=== PATIENT | male | born 1975 | race Hispanic/Latino ===

== ENCOUNTER 2018-11-08 11:35 | Emergency (ER) | payer BC, OTHER ==
--- OUTSIDE RECORDS SUMMARY | 2018-11-08 12:10 | XMS REPORT ---
:1975 [facility] Address [address] [place] [address] [address]. [address] [place] [address] Care Team Providers Name Role Phone Unavailable Unavailable Unavailable Problems This patient has no known problems. Allergies, Adverse Reactions, Alerts This patient has no known allergies or adverse reactions. Medications This patient has no known medications.
[2018-11-08 13:28] LABS: Urine Blood NEGATIVE (NEG); Urine Glucose NEGATIVE (NEG); Urine Protein 2+ (NEG); Urine Specific Gravity 1.025 (1.005-1.030); Urine pH 5.5 (5.0-7.0)
[2018-11-08 14:06] LABS: Absolute Lymphocytes (CBC) 1.8 K/uL (0.7-4.9); Absolute Monocytes 0.6 K/uL (0.1-1.3); Absolute Neutrophil 9.1 K/uL (1.8-8.0); Basophils % 0.6 % (0-1.3); Eosinophils % 1.9 % (0-4.4); Hematocrit 47.3 % (39.6-49.0); Lymphocytes % 15.3 % (15.3-44.8); MPV 9.5 fL (7.6-11.3); Monocytes % 5.1 % (3.3-12.3); RBC Red Blood Cell Count 6.09 M/uL (4.33-5.43)
[2018-11-08 14:25] LABS: Albumin 3.9 g/dL (3.4-5.0); Bilirubin Total 0.5 mg/dL (0.2-1.0); Potassium 4.1 mmol/L (3.5-5.1)
--- NOTE | 2018-11-08 14:28 | RAD REPORT ---
EXAM DESCRIPTION: CT - Stone Protocol - 11/08/2018 2:15 pm CLINICAL HISTORY: Abdominal pain. Right flank pain COMPARISON: None. TECHNIQUE: Computed axial tomography of the abdomen pelvis was obtained without oral or IV contrast. Lack of IV and oral contrast limits evaluation of solid organs, bowel, and vessels. Coronal reformat maryana images were obtained and reviewed. All CT scans are performed using dose optimization technique as appropriate and may include automated exposure control or mA/KV adjustment according to patient size. FINDINGS: A renal calculus is not seen. An ureteral calculus is not noted. A bladder calculus is not present. Fatty liver spleen, pancreas and adrenals appear grossly normal There is no evidence of diverticulitis. The appendix appears normal 12 millimeter area of sclerosis within the right femoral neck IMPRESSION: Negative for a genitourinary calculus 12 millimeter area of sclerosis within the right femoral neck. X-ray of the right hip recommended in 3 months to assess stability
--- NOTE | 2018-11-08 15:12 | EDPHYS ---
Physician Documentation [facility] Name: Chuy Combs Jr Age: 43 yrs Sex: Male : 1975 Arrival Date: 11/08/2018 Time: 11:38 Bed 27 Private MD: ED Physician Marcos Tao HPI: 11/08 15:11 This 43 yrs old Male presents to ER via Ambulatory with complaints of Back ps1 Pain. 15:11 patient states that he has atraumatic right back pain localized over the right hip. Pt ps1 states that it does not radiate but patient has a history of urinary complaints 2/2 diabetes. He does not attest to dysuria but has frequency. He describes the pain as dull. No hematuria. No history of urinary stones. No medications taken for pain. . Historical: - Allergies: 12:01 PENICILLINS; aj1 - Home Meds: 12:01 Metformin Oral [Active]; Glyburide Oral [Active]; levothyroxine oral [Active]; aj1 - PMHx: 12:01 Hypothyroidism; Diabetes - NIDDM; aj1 - Immunization history:: Flu vaccine is not up to date. - Social history:: Smoking status: Patient/guardian denies using tobacco. - Ebola Screening: : Patient denies travel to an Ebola-affected area in the 21 days before illness onset. ROS: 15:11 Constitutional: Negative for fever, chills, and weight loss, Eyes: Negative for injury, ps1 pain, redness, and discharge, ENT: Negative for injury, pain, and discharge, Cardiovascular: Negative for chest pain, palpitations, and edema, Respiratory: Negative for shortness of breath, cough, wheezing, and pleuritic chest pain, Abdomen/GI: Negative for abdominal pain, nausea, vomiting, diarrhea, and constipation, MS/Extremity: Negative for injury and deformity, Skin: Negative for injury, rash, and discoloration, Neuro: Negative for headache, weakness, numbness, tingling, and seizure. 15:11 Back: Positive for pain at rest, flank pain, on the right. Exam: 15:11 Constitutional: This is a well developed, well nourished patient who is awake, alert, ps1 and in no acute distress. Head/Face: Normocephalic, atraumatic. Eyes: Pupils equal round and reactive to light, extra-ocular motions intact. Lids and lashes normal. Conjunctiva and sclera are non-icteric and not injected. Chest/axilla: Normal chest wall appearance and motion. Nontender with no deformity. No lesions are appreciated. Cardiovascular: Regular rate and rhythm. No gallops, murmurs, or rubs. Normal PMI, no JVD. No pulse deficits. Respiratory: Lungs have equal breath sounds bilaterally, clear to auscultation and percussion. No rales, rhonchi or wheezes noted. No increased work of breathing, no retractions or nasal flaring. Abdomen/GI: Soft, non-tender, with normal bowel sounds. No distension or tympany. No guarding or rebound. No evidence of tenderness throughout. Skin: Warm, dry with normal turgor. Normal color with no rashes, no lesions, and no evidence of cellulitis. MS/ Extremity: Pulses equal, no cyanosis. Neurovascular intact. Full, normal range of motion. Neuro: Awake and alert, GCS 15, oriented to person, place, time, and situation. Cranial nerves II-XII grossly intact. Sensory grossly intact. Psych: Awake, alert, with orientation to person, place and time. Behavior, mood, and affect are within normal limits. Vital Signs: 12:01 BP 166 / 100; Pulse 86; Resp 18; Temp 97.0; Pulse Ox 100% on R/A; Weight 117.93 kg (R); aj1 Height 5 ft. 11 in. (180.34 cm) (R); Pain 8/10; 13:00 BP 143 / 94; Pulse 86; Resp 17 S; Temp 97.4(O); Pulse Ox 100% on R/A; ca1 13:56 BP 140 / 101; Pulse 87; Resp 17 S; Pulse Ox 100% on R/A; ca1 14:00 BP 143 / 97; Pulse 86; Resp 16; Temp 98.5(O); Pulse Ox 100% ; lt1 14:39 BP 159 / 103; Pulse 81; Resp 18 S; Temp 98.4(O); Pulse Ox 100% on R/A; ca1 15:02 BP 160 / 102; Pulse 83; Resp 17 S; Temp 98.5; Pulse Ox 100% on R/A; ca1 12:01 Body Mass Index 36.26 (117.93 kg, 180.34 cm) aj1 MDM: 13:53 Patient medically screened. ps1 15:11 Data reviewed: vital signs, nurses notes. Counseling: I had a detailed discussion with ps1 the patient and/or guardian regarding: the historical points, exam findings, and any diagnostic results supporting the discharge/admit diagnosis, lab results, radiology results, the need for outpatient follow up, for imaging of right hip for progression. . 11/08 13:17 Order name: Urine Dipstick--Ancillary (enter results); Complete Time: 13:37 bd 11/08 13:38 Order name: CBC with Diff; Complete Time: 14:12 ps1 11/08 13:38 Order name: CMP; Complete Time: 14:40 ps1 11/08 13:38 Order name: CT Stone Protocol; Complete Time: 14:40 ps1 11/08 13:55 Order name: Saline Lock; Complete Time: 13:55 ca1 Administered Medications: No medications were administered Disposition: 11/08/18 15:11 Discharged to Home. Impression: Sclerosis of right femoral neck, right hip pain. - Condition is Stable. - Discharge Instructions: Hip Pain. - Prescriptions for Anaprox DS 550 mg Oral Tablet - take 1 tablet by ORAL route every 12 hours As needed; 20 tablet. Robaxin 500 mg Oral Tablet - take 2 tablet by ORAL route every 6 hours As needed; 40 tablet. - Medication Reconciliation Form, Thank You Letter, Antibiotic Education, Prescription Opioid Use form. - Follow up: Private Physician; When: As needed; Reason: Further diagnostic work-up, Recheck today's complaints, Continuance of care, Re-evaluation by your physician. Follow up: Emergency Department; When: As needed; Reason: Fever > 102 F, Trouble breathing, Worsening of condition. - Problem is new. - Symptoms are unchanged. Signatures: [facility] Gosia Dominguez RN RN aj1 Iraida Gonzalez RN RN aj Marcos Tao MD MD ps1 Melida Agudelo RN RN ca1 Corrections: (The following items were deleted from the chart) 13:40 13:39 HEMOGLOBIN A1C+CHEM A1C.LAB.BRZ ordered. [facility] 15:29 15:11 11/08/2018 15:11 Discharged to Home. Impression: Sclerosis of right femoral neck; aj right hip pain. Condition is Stable. Forms are Medication Reconciliation Form, Thank You Letter, Antibiotic Education, Prescription Opioid Use. Follow up: Private Physician; When: As needed; Reason: Further diagnostic work-up, Recheck today's complaints, Continuance of care, Re-evaluation by your physician. Follow up: Emergency Department; When: As needed; Reason: Fever > 102 F, Trouble breathing, Worsening of condition. Problem is new. Symptoms are unchanged. ps1
--- NOTE | 2018-11-08 15:12 | ER ---
Nurse's Notes [facility] Name: Chuy Combs Jr Age: 43 yrs Sex: Male : 1975 Arrival Date: 11/08/2018 Time: 11:38 Bed 27 Private MD: Diagnosis: Sclerosis of right femoral neck;right hip pain Presentation: 11/08 11:58 Presenting complaint: Patient states: "Wednesday night my back started hurting like aj1 someone is punching me, its not like a sharp pain, its like a soreness" Reports pain to right mid back. Denies injury to back. Reports urinary frequency. Transition of care: patient was not received from another setting of care. Onset of symptoms was November 06, 2018. Risk Assessment: Do you want to hurt yourself or someone else? Patient reports no desire to harm self or others. Initial Sepsis Screen: Does the patient meet any 2 criteria? HR > 90 bpm. No. Patient's initial sepsis screen is negative. Does the patient have a suspected source of infection? Yes: Dysuria/Frequency/Urgency/UTI. Care prior to arrival: None. 11:58 Method Of Arrival: Ambulatory [facility] 11:58 Acuity: USMAN 3 aj1 Triage Assessment: 12:01 General: Appears in no apparent distress. comfortable, Behavior is calm, cooperative, aj1 appropriate for age. Pain: Complains of pain in right mid back. Neuro: Level of Consciousness is awake, alert, obeys commands. Cardiovascular: Patient's skin is warm and dry. Respiratory: Airway is patent Respiratory effort is even, unlabored, Respiratory pattern is regular, agonal. : Reports urinary frequency. Musculoskeletal: Range of motion: intact in all extremities. Historical: - Allergies: 12:01 PENICILLINS; aj1 - Home Meds: 12:01 Metformin Oral [Active]; Glyburide Oral [Active]; levothyroxine oral [Active]; aj1 - PMHx: 12:01 Hypothyroidism; Diabetes - NIDDM; aj1 - Immunization history:: Flu vaccine is not up to date. - Social history:: Smoking status: Patient/guardian denies using tobacco. - Ebola Screening: : Patient denies travel to an Ebola-affected area in the 21 days before illness onset. Screenin:00 Abuse screen: Denies threats or abuse. Denies injuries from another. Nutritional ca1 screening: No deficits noted. Tuberculosis screening: No symptoms or risk factors identified. Fall Risk None identified. Assessment: 13:00 General: Appears in no apparent distress. comfortable, Behavior is calm, cooperative, ca1 appropriate for age. Pain: Complains of pain in back and right mid back Pain radiates to right upper quadrant Pain currently is 7 out of 10 on a pain scale. Quality of pain is described as dull, Pain began 2-3 days ago. Aggravated by increased activity. Neuro: Level of Consciousness is awake, alert, obeys commands, Oriented to person, place, time, situation. Cardiovascular: Heart tones S1 S2 present Capillary refill < 3 seconds Patient's skin is warm and dry. Respiratory: Airway is patent Respiratory effort is even, unlabored, Respiratory pattern is regular, symmetrical, Breath sounds are clear bilaterally. GI: Abdomen is round non-distended, Bowel sounds present X 4 quads. Abd is soft and non tender X 4 quads. : No deficits noted. No signs and/or symptoms were reported regarding the genitourinary system. EENT: No deficits noted. No signs and/or symptoms were reported regarding the EENT system. Derm: Skin is intact, is healthy with good turgor, Skin is pink, warm \\T\\ dry. Musculoskeletal: Circulation, motion, and sensation intact. Capillary refill < 3 seconds, Range of motion: intact in all extremities. 13:55 Reassessment: Patient appears in no apparent distress at this time. No changes from ca1 previously documented assessment. Patient and/or family updated on plan of care and expected duration. Pain level reassessed. Patient is alert, oriented x 3, equal unlabored respirations, skin warm/dry/pink. 14:19 Reassessment: Pt from Ct scan. ca1 14:39 Reassessment: Patient appears in no apparent distress at this time. Patient is alert, ca1 oriented x 3, equal unlabored respirations, skin warm/dry/pink. 15:02 Reassessment: Patient appears in no apparent distress at this time. Patient is alert, ca1 oriented x 3, equal unlabored respirations, skin warm/dry/pink. Vital Signs: 12:01 BP 166 / 100; Pulse 86; Resp 18; Temp 97.0; Pulse Ox 100% on R/A; Weight 117.93 kg (R); aj1 Height 5 ft. 11 in. (180.34 cm) (R); Pain 8/10; 13:00 BP 143 / 94; Pulse 86; Resp 17 S; Temp 97.4(O); Pulse Ox 100% on R/A; ca1 13:56 BP 140 / 101; Pulse 87; Resp 17 S; Pulse Ox 100% on R/A; ca1 14:00 BP 143 / 97; Pulse 86; Resp 16; Temp 98.5(O); Pulse Ox 100% ; lt1 14:39 BP 159 / 103; Pulse 81; Resp 18 S; Temp 98.4(O); Pulse Ox 100% on R/A; ca1 15:02 BP 160 / 102; Pulse 83; Resp 17 S; Temp 98.5; Pulse Ox 100% on R/A; ca1 12:01 Body Mass Index 36.26 (117.93 kg, 180.34 cm) aj1 ED Course: 11:38 Patient arrived in ED. mr 12:00 Triage completed. aj1 12:01 Arm band placed on. aj1 12:53 Melida Agudelo, ZEV is Primary Nurse. ca1 12:53 Marcos Tao MD is Attending Physician. ps1 13:00 Patient has correct armband on for positive identification. Placed in gown. Bed in low ca1 position. Call light in reach. Side rails up X 1. Pulse ox on. NIBP on. Warm blanket given. 13:50 Inserted saline lock: 20 gauge in left antecubital area, using aseptic technique. Blood ca1 collected. 14:15 CT completed. Patient tolerated procedure well. ls3 14:16 CT Stone Protocol In Process Unspecified. EDMS 15:29 No provider procedures requiring assistance completed. IV discontinued, intact, aj bleeding controlled, No redness/swelling at site. Pressure dressing applied. Administered Medications: No medications were administered Outcome: 15:11 Discharge ordered by . ps1 15:29 Discharged to home ambulatory. aj 15:29 Condition: good 15:29 Discharge instructions given to patient, Instructed on discharge instructions, follow up and referral plans. medication usage, Demonstrated understanding of instructions, follow-up care, medications, Prescriptions given X 2. 15:29 Patient left the ED. aj Signatures: Dispatcher [employer] EDMS Gosia Dominguez RN RN ajIraida Garcia RN RN aj Rivera, Mary mr Marcos Tao MD MD ps1 Ric Perales ls3 Melida Agudelo RN RN ca1 Mary Kay Bustamante lt1 Corrections: (The following items were deleted from the chart) 11:58 Acuity: USMAN 4 aj1 aj1
[2018-11-08 21:56] VITALS: O2SAT 100
[2018-11-08 22:03] VITALS: BP 160/102; TEMP 98.5
== END 2018-11-08 15:29 | disposition home or self-care (01) ==
LOC: ER 11:35
DX: M25.551 Pain in right hip (principal); M89.9 Disorder of bone, unspecified; E11.9 Type 2 diabetes mellitus without complications; E03.9 Hypothyroidism, unspecified; Z79.84 Long term (current) use of oral hypoglycemic drugs; Z88.0 Allergy status to penicillin
CPT/HCPCS: 36415; 74176; 76377; 80053; 81003; 85025; 99284

== ENCOUNTER 2020-11-18 11:12 | Emergency (ER) | payer BC ==
--- OUTSIDE RECORDS SUMMARY | 2020-11-18 11:16 | XMS REPORT | Continuity of Care Document ---
:[address] [facility] t Address [address] [place] [address] [address]. [address] [place] [address] Care Team Providers Name Role Phone Doctor Unassigned, Name Attending Clinician Unavailable Lab, Fam Pob I Attending Clinician Unavailable Problems This patient has no known problems. Allergies, Adverse Reactions, Alerts This patient has no known allergies or adverse reactions. Medications This patient has no known medications. Procedures This patient has no known procedures. Encounters Start End Encounter Admission Attending Care Care Encounter Source Date/Time Date/Time Type Type Clinicians Facility Department ID 2020-01-24 2020-01-24 Patient Doctor NISHANT [id number] 00:00:00 00:00:00 Secure Msg Unassigned, ARNIE [id number] [place] [id number] 2020-01-23 2020-01-23 Laboratory Lab, [facility] [id number] 16:45:34 17:05:34 Only Fam Pob I Health [id number] [place] [id number] [facility] [phone] nal [address] 2020-01-23 2020-01-23 Letter Doctor NISHANT [id number] 00:00:00 00:00:00 (Out) Unassigned, ARNIE [id number] [place] [facility] [phone] [id number] Results This patient has no known results.
[2020-11-18] MEDS ORDERED: NA CHLORIDE 0.9% 1,000 ML ONE (12:40)
[2020-11-18] MEDS ORDERED: MORPHINE 4 MG/ML SYR ONE (12:40)
[2020-11-18] MEDS ORDERED: ONDANSETRON 4 MG/2 ML VIAL ONE (12:40)
[2020-11-18 12:49] LABS: Basophils % 0.7 % (0-1.3); Hematocrit 46.1 % (39.6-49.0); Lymphocytes % 17.2 % (15.3-44.8); MPV 9.5 fL (7.6-11.3)
--- NOTE | 2020-11-18 12:51 | RAD REPORT ---
EXAM DESCRIPTION: CTAbdomen Pelvis W Contrast - 11/18/2020 12:42 pm CLINICAL HISTORY: Abdominal pain. ABD PAIN COMPARISON: No comparisons TECHNIQUE: Biphasic CT imaging of the abdomen and pelvis was performed with 100 ml non-ionic IV cont rast. All CT scans are performed using dose optimization technique as appropriate and may include automated exposure control or mA/KV adjustment according to patient size. FINDINGS: The lung bases are clear. The liver demonstrates mild fatty infiltration. The spleen, pancreas, adrenal glands and kidneys are within normal limits. No bowel obstruction, free air, free fluid or abscess. 4 cm area of inflamed fat is seen in the right lower quadrant suspicious for epiploic appendagitis. The appendix is normal. Moderate stool is retai anton throughout the colon. No evidence of significant lymphadenopathy. No suspicious bony findings. IMPRESSION: Right lower quadrant epiploic appendagitis suspected. Fatty liver
[2020-11-18 13:08] LABS: ALT/SGPT 30 U/L (12-78); AST/SGOT 13 U/L (15-37); Albumin 3.9 g/dL (3.4-5.0); Alkaline Phosphatase 119 U/L (45-117); BUN Blood Urea Nitrogen 18 mg/dL (7-18); Bicarbonate 29 mmol/L (21-32); Bilirubin Direct < 0.1 mg/dL (0-0.2); Bilirubin Total 0.4 mg/dL (0.2-1.0); Glucose Level 131 mg/dL (74-106); Lipase 129 U/L (73-393); Potassium 4.2 mmol/L (3.5-5.1); Protein, Total 8.2 g/dL (6.4-8.2); Sodium Level 139 mmol/L (136-145)
--- NOTE | 2020-11-18 14:06 | ER ---
Nurse's Notes [facility] Name: Chuy Combs Jr Age: 45 yrs Sex: Male : 1975 Arrival Date: 11/18/2020 Time: 11:15 Bed 27 Private MD: Diagnosis: Epiploic appendagitis Presentation: 11/18 11:32 Chief complaint: Patient states: RLQ pain since last night. Reports dizziness, N/V. ca1 Denies diarrhea and fever. Coronavirus screen: Client denies travel out of the [place] in the last 14 days. nausea, vomiting. Client presents with at least one sign or symptom that may indicate coronavirus-19. Standard/surgical mask placed on the client. Provider contacted for isolation considerations. Ebola Screen: Patient negative for fever greater than or equal to 101.5 degrees Fahrenheit, and additional compatible Ebola Virus Disease symptoms Patient denies exposure to infectious person. Patient denies travel to an Ebola-affected area in the 21 days before illness onset. No symptoms or risks identified at this time. Initial Sepsis Screen: Does the patient meet any 2 criteria? No. Patient's initial sepsis screen is negative. Does the patient have a suspected source of infection? No. Patient's initial sepsis screen is negative. Risk Assessment: Do you want to hurt yourself or someone else? Patient reports no desire to harm self or others. Onset of symptoms was November 17, 2020. 11:32 Method Of Arrival: Ambulatory ca1 11:32 Acuity: USMAN 3 ca1 Historical: - Allergies: 11:34 PENICILLINS; ca1 - Home Meds: 11:34 levothyroxine oral [Active]; Metformin Oral [Active]; Glimepiride Oral [Active]; ca1 - PMHx: 11:34 Diabetes - NIDDM; Hypothyroidism; ca1 - PSHx: 11:34 None; ca1 - Immunization history:: Client reports having NOT received the Covid vaccine. Flu vaccine is not up to date. - Social history:: Smoking status: Patient denies any tobacco usage or history of. Screenin:08 Abuse screen: Denies threats or abuse. Denies injuries from another. Nutritional zb screening: No deficits noted. Tuberculosis screening: No symptoms or risk factors identified. Fall Risk None identified. Assessment: 12:06 General: Appears in no apparent distress. uncomfortable, Behavior is calm, cooperative, zb appropriate for age. Pain: Complains of pain in right lower quadrant Pain does not radiate. Pain currently is 0 out of 10 on a pain scale. at worst was 8 out of 10 on a pain scale. Quality of pain is described as aching, dull, Pain began yesterday Is intermittent, Also complains of nausea. Neuro: Level of Consciousness is awake, alert, obeys commands, Oriented to person, place, time, situation. Cardiovascular: Patient's skin is warm and dry. Respiratory: Airway is patent Respiratory effort is even, unlabored, Respiratory pattern is regular, symmetrical. GI: Abdomen is round obese, Last meal was November 17, 2020. Bowel sounds present X 4 quads. Abdomen is tender to palpation in left upper quadrant and right lower quadrant Reports nausea, vomiting. : Urine is clear. Derm: Skin is intact, is healthy with good turgor. Musculoskeletal: Circulation, motion, and sensation intact. Range of motion: intact in all extremities. 12:21 Reassessment: ecp at bedside. zb 13:15 Reassessment: pain decreased. zb 13:30 Reassessment: Patient appears in no apparent distress at this time. Patient and/or zb family updated on plan of care and expected duration. Pain level reassessed. Patient is alert, oriented x 3, equal unlabored respirations, skin warm/dry/pink. ECP at bedside explain care. 14:28 Reassessment: d/c pending completion of of IV medication. zb 15:04 Reassessment: Patient appears in no apparent distress at this time. Patient and/or zb family updated on plan of care and expected duration. Pain level reassessed. Patient is alert, oriented x 3, equal unlabored respirations, skin warm/dry/pink. IV completed. d/c instructions given. no issues at this time. gait even and steady for discharge. Vital Signs: 11:32 BP 150 / 86; Pulse 88; Resp 16 S; Temp 97.1(TE); Pulse Ox 99% on R/A; Weight 127.01 kg ca1 (R); Height 5 ft. 11 in. (180.34 cm) (R); Pain 7/10; 12:08 BP 152 / 95; Pulse 84; Resp 16; Pulse Ox 99% on R/A; zb 13:15 BP 134 / 91; Pulse 75; Resp 16; Pulse Ox 100% on R/A; zb 14:30 BP 133 / 83; Pulse 79; Resp 16; Pulse Ox 100% on R/A; zb 15:04 BP 138 / 92; Pulse 84; Resp 16; Pulse Ox 100% on R/A; zb 11:32 Body Mass Index 39.05 (127.01 kg, 180.34 cm) ca1 ED Course: 11:15 Patient arrived in ED. as 11:33 Triage completed. ca1 11:34 Arm band placed on right wrist. ca1 12:00 Patient placed in an exam room, on a stretcher. ll1 12:06 Gayathri Pizarro, ZEV is Primary Nurse. zb 12:09 Patient has correct armband on for positive identification. Bed in low position. Call zb light in reach. Side rails up X 1. Pulse ox on. NIBP on. Door closed. Noise minimized. 12:15 Brandan Ramon NP is PHCP. pm1 12:15 Ernesto Roblero MD is Attending Physician. pm1 12:34 Inserted saline lock: 20 gauge in right antecubital area, using aseptic technique. zb Blood collected. 12:34 Initial lab(s) drawn, by me, sent to lab. zb 12:42 CT Abd/Pelvis - IV Contrast Only In Process Unspecified. EDMS 14:04 Santiago Lance MD is Referral Physician. pm1 15:05 No provider procedures requiring assistance completed. IV discontinued, intact, zb bleeding controlled, No redness/swelling at site. Pressure dressing applied. Administered Medications: 12:32 Drug: NS 0.9% 1000 ml Route: IV; Rate: 1000 ml; Site: right antecubital; zb 14:27 Follow up: Response: No adverse reaction; IV Status: Completed infusion; IV Intake: zb 1000ml 12:33 Drug: morphine 4 mg {Note: RASS 0.} Route: IVP; Site: right antecubital; zb 13:00 Follow up: Response: No adverse reaction; Pain is decreased; RASS: Alert and Calm (0) zb 12:33 Drug: Zofran (Ondansetron) 4 mg Route: IVP; Site: right antecubital; zb 14:28 Follow up: Response: No adverse reaction; Nausea is decreased zb 14:27 Drug: Flagyl (metroNIDAZOLE) 500 mg Volume: 100 ml; Route: IVPB; Rate: 200 ml/hr; zb Infused Over: 30 mins; Site: right antecubital; 15:05 Follow up: Response: No adverse reaction; IV Status: Completed infusion; IV Intake: zb 100ml 14:27 Drug: Cipro (ciprofloxacin) 500 mg Route: PO; zb 15:06 Follow up: Response: No adverse reaction zb Intake: 14:27 IV: 1000ml; Total: 1000ml. zb 15:05 IV: 100ml; Total: 1100ml. zb Outcome: 14:05 Discharge ordered by . pm1 15:05 Discharged to home ambulatory. zb 15:05 Condition: stable 15:05 Discharge instructions given to patient, Instructed on discharge instructions, follow up and referral plans. medication usage, Demonstrated understanding of instructions, follow-up care, medications, Prescriptions given X 3. 15:06 Patient left the ED. zb Signatures: Dispatcher [employer] Dee Leggett Patrick, ELECTRICAL CAD TECHNICIAN ELECTRICAL CAD TECHNICIAN pm1 Melida Agudelo RN RN Adelita Wynn RN RN ll1 Gayathri Pizarro RN RN zanderson
--- NOTE | 2020-11-18 14:06 | EDPHYS ---
Physician Documentation [facility] Name: Chuy Combs Jr Age: 45 yrs Sex: Male : 1975 Arrival Date: 11/18/2020 Time: 11:15 Bed 27 Private MD: ED Physician Ernesto Roblero HPI: 11/18 13:00 This 45 yrs old Male presents to ER via Ambulatory with complaints of r/o pm1 appendicitis. 13:00 The patient presents with abdominal pain right lower quadrant. Onset: The pm1 symptoms/episode began/occurred yesterday. The symptoms do not radiate. Associated signs and symptoms: Pertinent positives: Dizziness, nausea, and vomiting yesterday at onset of pain. No current dizziness, nausea and vomiting. The symptoms are described as achy. Modifying factors: The symptoms are alleviated by remaining still, the symptoms are aggravated by movement, touching the area. Severity of pain: in the emergency department the pain is unchanged. The patient has been recently seen by a physician: the patient's primary care provider, earlier today, with similar presenting complaints, and was sent to the [facility] Emergency Department for further evaluation. Historical: - Allergies: 11:34 PENICILLINS; ca1 - Home Meds: 11:34 levothyroxine oral [Active]; Metformin Oral [Active]; Glimepiride Oral [Active]; ca1 - PMHx: 11:34 Diabetes - NIDDM; Hypothyroidism; ca1 - PSHx: 11:34 None; ca1 - Immunization history:: Client reports having NOT received the Covid vaccine. Flu vaccine is not up to date. - Social history:: Smoking status: Patient denies any tobacco usage or history of. ROS: 13:00 Constitutional: Negative for fever, chills, and weight loss, Eyes: Negative for injury, pm1 pain, redness, and discharge, ENT: Negative for injury, pain, and discharge, Neck: Negative for injury, pain, and swelling, Cardiovascular: Negative for chest pain, palpitations, and edema, Respiratory: Negative for shortness of breath, cough, wheezing, and pleuritic chest pain. 13:00 Back: Negative for injury and pain, : Negative for injury, bleeding, discharge, and swelling, MS/Extremity: Negative for injury and deformity, Skin: Negative for injury, rash, and discoloration. 13:00 Abdomen/GI: Positive for abdominal pain, nausea and vomiting, Negative for diarrhea, constipation. 13:00 Neuro: Positive for dizziness, Negative for headache, numbness, tingling, weakness. Exam: 13:00 Constitutional: This is a well developed, well nourished patient who is awake, alert, pm1 and in no acute distress. Head/Face: Normocephalic, atraumatic. 13:00 Chest/axilla: Normal chest wall appearance and motion. Nontender with no deformity. No lesions are appreciated. 13:00 Back: No spinal tenderness. No costovertebral tenderness. Full range of motion. Skin: Warm, dry with normal turgor. Normal color with no rashes, no lesions, and no evidence of cellulitis. MS/ Extremity: Pulses equal, no cyanosis. Neurovascular intact. Full, normal range of motion. 13:00 Eyes: Exam is negative for acute changes, Extraocular movements: intact throughout, Conjunctiva: normal. 13:00 ENT: Exam is negative for acute changes, Mouth: Lips: normal, Oral mucosa: normal, pink and intact, moist. 13:00 Cardiovascular: Exam negative for acute changes, Rate: normal, Rhythm: regular, Pulses: no pulse deficits are appreciated, Edema: is not appreciated. 13:00 Respiratory: Exam negative for acute changes, respiratory distress, shortness of breath. 13:00 Abdomen/GI: Inspection: obese Palpation: soft, in all quadrants, mild abdominal tenderness, in the right lower quadrant. 13:00 Neuro: Exam negative for acute changes, Orientation: is normal, Mentation: is normal, Motor: is normal, moves all fours. Vital Signs: 11:32 BP 150 / 86; Pulse 88; Resp 16 S; Temp 97.1(TE); Pulse Ox 99% on R/A; Weight 127.01 kg ca1 (R); Height 5 ft. 11 in. (180.34 cm) (R); Pain 7/10; 12:08 BP 152 / 95; Pulse 84; Resp 16; Pulse Ox 99% on R/A; zb 13:15 BP 134 / 91; Pulse 75; Resp 16; Pulse Ox 100% on R/A; zb 14:30 BP 133 / 83; Pulse 79; Resp 16; Pulse Ox 100% on R/A; zb 15:04 BP 138 / 92; Pulse 84; Resp 16; Pulse Ox 100% on R/A; zb 11:32 Body Mass Index 39.05 (127.01 kg, 180.34 cm) ca1 MDM: 12:23 Patient medically screened. pm1 12:42 Data reviewed: vital signs. Data interpreted: Pulse oximetry: on room air is 99 %. pm1 Interpretation: normal. 14:03 Counseling: I had a detailed discussion with the patient and/or guardian regarding: the pm1 historical points, exam findings, and any diagnostic results supporting the discharge/admit diagnosis, lab results, radiology results, the need for outpatient follow up, to return to the emergency department if symptoms worsen or persist or if there are any questions or concerns that arise at home. 11/18 12:18 Order name: Basic Metabolic Panel; Complete Time: 13:45 pm1 11/18 12:18 Order name: CBC with Diff; Complete Time: 12:54 pm1 11/18 12:18 Order name: Hepatic Function; Complete Time: 13:45 pm1 11/18 12:18 Order name: Lipase; Complete Time: 13:45 pm1 11/18 12:18 Order name: CT Abd/Pelvis - IV Contrast Only; Complete Time: 12:54 pm1 11/18 13:11 Order name: CREATININE WHOLE BLOOD; Complete Time: 13:45 EDMS 11/18 12:18 Order name: IV Saline Lock; Complete Time: 12:33 pm1 11/18 12:18 Order name: Labs collected and sent; Complete Time: 12:33 pm1 Administered Medications: 12:32 Drug: NS 0.9% 1000 ml Route: IV; Rate: 1000 ml; Site: right antecubital; zb 14:27 Follow up: Response: No adverse reaction; IV Status: Completed infusion; IV Intake: zb 1000ml 12:33 Drug: morphine 4 mg {Note: RASS 0.} Route: IVP; Site: right antecubital; zb 13:00 Follow up: Response: No adverse reaction; Pain is decreased; RASS: Alert and Calm (0) zb 12:33 Drug: Zofran (Ondansetron) 4 mg Route: IVP; Site: right antecubital; zb 14:28 Follow up: Response: No adverse reaction; Nausea is decreased zb 14:27 Drug: Flagyl (metroNIDAZOLE) 500 mg Volume: 100 ml; Route: IVPB; Rate: 200 ml/hr; zb Infused Over: 30 mins; Site: right antecubital; 15:05 Follow up: Response: No adverse reaction; IV Status: Completed infusion; IV Intake: zb 100ml 14:27 Drug: Cipro (ciprofloxacin) 500 mg Route: PO; zb 15:06 Follow up: Response: No adverse reaction zb Disposition: 11/19 09:53 Co-signature as Attending Physician, Ernesto Roblero MD I agree with the assessment and reji plan of care. Disposition: 11/18/20 14:05 Discharged to Home. Impression: Epiploic appendagitis. - Condition is Stable. - Discharge Instructions: Abdominal Pain, Adult. - Prescriptions for Cipro 500 mg Oral Tablet - take 1 tablet by ORAL route every 12 hours for 10 days; 20 tablet. Flagyl 500 mg Oral Tablet - take 1 tablet by ORAL route every 8 hours for 10 days; 30 tablet. Tylenol- Codeine #3 300-30 mg Oral Tablet - take 2 tablets by ORAL route every 4-6 hours As needed; 20 tablet. - Medication Reconciliation Form, Thank You Letter, Antibiotic Education, Prescription Opioid Use form. - Follow up: Emergency Department; When: As needed; Reason: Worsening of condition. Follow up: Private Physician; When: 2 - 3 days; Reason: Recheck today's complaints, Continuance of care, Re-evaluation by your physician. Follow up: Santiago Lance MD; When: 2 - 3 days; Reason: Recheck today's complaints, Continuance of care, Re-evaluation by your physician. - Problem is new. - Symptoms have improved. Signatures: Dispatcher [employer] Ernesto Lilly MD MD cha Marinas, Patrick, FLOW FLOOR ATTENDANT FLOW FLOOR ATTENDANT pm1 Melida Agudelo RN RN ca1 Brown, Zipporah, RN RN zb Corrections: (The following items were deleted from the chart) 11/18 15:06 14:05 11/18/2020 14:05 Discharged to Home. Impression: Epiploic appendagitis. Condition zb is Stable. Forms are Medication Reconciliation Form, Thank You Letter, Antibiotic Education, Prescription Opioid Use. Follow up: Emergency Department; When: As needed; Reason: Worsening of condition. Follow up: Private Physician; When: 2 - 3 days; Reason: Recheck today's complaints, Continuance of care, Re-evaluation by your physician. Follow up: Santiago Lance; When: 2 - 3 days; Reason: Recheck today's complaints, Continuance of care, Re-evaluation by your physician. Problem is new. Symptoms have improved. pm1
[2020-11-18] MEDS ORDERED: METRONIDAZOLE 500mg IVPB 500 MG/100 ML BAG IV ONE (14:42)
[2020-11-18] MEDS ORDERED: CIPROFLOXACIN HCL 500 MG TAB ONE (14:42)
[2020-11-18 15:26] VITALS: TEMP 97.1
[2020-11-18 15:29] VITALS: O2SAT 100
[2020-11-18 15:32] VITALS: BP 138/92
== END 2020-11-18 15:06 | disposition home or self-care (01) ==
LOC: ER 11:12
DX: K63.89 Other specified diseases of intestine (principal); E03.9 Hypothyroidism, unspecified; E11.9 Type 2 diabetes mellitus without complications; Z88.0 Allergy status to penicillin
CPT/HCPCS: 85025; 80048; 36415; 82565; 80076; 83690; 74177; Q9967; J7030; J2405; 96361; 96365; 96375; 99284